=== PATIENT | female | born 1965 | race Caucasian/White ===

== ENCOUNTER 2024-07-23 07:20 | Day surgery (SDC) | payer OTHER ==
[~2024-07-23] VITALS: Ht 165.1 cm; Wt 76.2 kg
[2024-07-23] MEDS ORDERED: MIDAZOLAM HCL 5 MG/5 ML VIAL ONE ×2 (07:50→12:08)
[2024-07-23] MEDS ORDERED: MEPERIDINE 100 MG INJ. 100 MG/ML VIAL ONE (07:50)
[2024-07-23] MEDS ORDERED: BENZOCAINE 20% 0.5mL UD SPRAY MM ONE (09:43)
[2024-07-23] MEDS ORDERED: ONDANSETRON HCL 4 MG/2 ML VIAL ONE (10:05)
[2024-07-23 12:06] VITALS: O2SAT 100
[2024-07-23 17:04] VITALS: BP_SYST 125; PULSE 70; RESP 11
== END 2024-07-23 11:15 | disposition home or self-care (01) ==
LOC: SGI 07:20 → SMU 07:21 → SGI 11:15
PROVIDERS: ATTEND Internal Medicine
DX: R19.4 Change in bowel habit (principal); K63.89 Other specified diseases of intestine; K29.50 Unspecified chronic gastritis without bleeding; K31.89 Other diseases of stomach and duodenum; K21.9 Gastro-esophageal reflux disease without esophagitis; R10.13 Epigastric pain; K64.8 Other hemorrhoids; K44.9 Diaphragmatic hernia without obstruction or gangrene; I12.0 Hypertensive chronic kidney disease with stage 5 chronic kidney disease or end stage renal disease; N18.6 End stage renal disease; Z90.710 Acquired absence of both cervix and uterus; Z79.899 Other long term (current) drug therapy; Z87.891 Personal history of nicotine dependence
CPT/HCPCS: 45380; 43239; 88305; 88312; 88313; 99152; G0378; J2250; J2405; J2175